=== PATIENT | male | born 1950 | race Caucasian/White ===

== ENCOUNTER 2021-11-17 12:44 | Outpatient (CLI) | payer MEDICARE, OTHER, SELFPAY | END 2021-11-17 12:45 | disposition home or self-care (01) | LOC: RAD 12:47 | PROVIDERS: PCP Internal Medicine; Visit Provider Internal Medicine | DX: I77.810 Thoracic aortic ectasia (principal); I51.7 Cardiomegaly | CPT/HCPCS: 93306 ==

== ENCOUNTER 2021-12-30 07:52 | Outpatient (CLI) | payer MEDICARE, OTHER, SELFPAY ==
--- NOTE | 2021-12-30 08:00 | CRLHL7_ITS ---
For Patients: As a result of the Century Cures Act, medical imaging exams and procedure reports are released immediately into your electronic medical record. You may view this report before your referring provider. If you have questions, please contact your health care provider. [facility] ??? MOBILE IMAGING SERVICES MYOCARDIAL PERFUSION SCAN, 12/30/2021 CLINICAL HISTORY: 71-year-old male. Dyspnea. Hypertension. Shortness of breath. Hyperlipidemia. 5 feet 11 inches, 225 pounds. TECHNIQUE: (Resting SPECT and stress gated SPECT with wall motion and ejection fraction) Stress: Treadmill (6 minutes 36 seconds) Maximum Heart Rate: 142 bpm Maximum Blood Pressure: 178 mmHg systolic Rate Pressure Product: 25,276 Dose (Stress/Rest): 35.4 mCi/10.5 mCi [id number] (IV) Comparison: None FINDINGS: There is good uptake of activity by the left ventricle. No left ventricular enlargement is noted. There is soft tissue attenuation. No other significant fixed or reversible defects are identified. The gated images demonstrate a normal left ventricular ejection fraction of 68 percent. No regional wall motion abnormalities are identified. IMPRESSION: 1) There is no evidence of significant myocardial ischemia or infarction. 2) Normal left ventricular ejection fraction of 68 percent. This study was jointly reviewed by Radiology and Cardiology. MAULIK SERRANO M.D. Diagnostic/Nuclear Medicine Radiologist [email or web address] Transcribed: 4:10 p.m. AGNES GAMING M.D. Department of Cardiology RD/Dictated by: Maulik Serrano MD @ 12/30/2021 1:51:00 PM (Electronically Signed)
[2021-12-30 09:50] VITALS: BP 130/80; PULSE 86; RESP 16
--- NOTE | 2021-12-30 10:21 | PM.ST ---
Stress Test Note Date Date of test: 12/30/21 Providers Referring provider: Birgit Roland Primary care provider: Birgit Roland Stress test physician: Faisal Monroe Stress Test Note Stress test ordered: Stress Myoview Indication for test: Shortness of breath Results discussion: Patient is a rosana 71-year-old gentleman presents for the above test, after the risks benefits and side effects are discussed in detail with him he would like to proceed. Cardiac stress test medical history form is reviewed. Pretest EKG shows normal sinus rhythm, with a ventricular rate of 67, blood pressure 148/82. Some mild ST wave irregularities are noted at baseline. Standard Chandan protocol is employed over a time course of 6 minutes 37 seconds, achieved 7.9 Mets, with a maximum heart rate of 142 which is 110% of the maximum. Test is terminated because of fulfillment of protocol, there was no chest pain no shortness of breath or any other subjective symptoms. He did not have any ST wave changes suggestive of ischemia, there is no dysrhythmias, any recovered normally in the recovery. Impression: Negative electrographic portion of stress Myoview Follow up suggested: Await nuclear images these will be jointly read by Cardiology and nuclear Medicine, clinical correlation with these will be needed, patient was back to baseline left this testing facility in excellent condition.
== END 2021-12-30 07:53 | disposition home or self-care (01) ==
LOC: STRESS 07:53
PROVIDERS: PCP Internal Medicine; Visit Provider Family Medicine
DX: R06.00 Dyspnea, unspecified (principal); R06.02 Shortness of breath; I10 Essential (primary) hypertension; E78.5 Hyperlipidemia, unspecified
CPT/HCPCS: 78452; 93016; 93017; A9500

== ENCOUNTER 2022-10-10 13:52 | Outpatient (CLI) | payer MEDICARE, OTHER, SELFPAY | END 2022-10-10 13:53 | disposition home or self-care (01) | LOC: RAD 13:52 | PROVIDERS: PCP Internal Medicine; Visit Provider Internal Medicine | DX: I77.810 Thoracic aortic ectasia (principal); I35.1 Nonrheumatic aortic (valve) insufficiency | CPT/HCPCS: 93306 ==

== ENCOUNTER 2022-12-26 08:39 | Outpatient (CLI) | payer MEDICARE, OTHER, SELFPAY ==
--- NOTE | 2022-12-26 09:40 | W.ANESCHARGE ---
Anesthesia Charges Start Date/Time Anesthesia Start Date: 12/26/22 Anesthesia Start Time: 09:05 Stop Date/Time Anesthesia Stop Date: 12/26/22 Anesthesia Stop Time: 09:38 Summary Extremes of Age - Over 70 or under 1: INFORMATION TECHNOLOGY ARCHITECT
--- NOTE | 2022-12-26 09:43 | W.ANESCHARGE ---
Anesthesia Charges Start Date/Time Anesthesia Start Date: 12/26/22 Anesthesia Start Time: 09:05 Stop Date/Time Anesthesia Stop Date: 12/26/22 Anesthesia Stop Time: 09:38 Summary Extremes of Age - Over 70 or under 1: MDA
== END 2022-12-26 08:40 | disposition home or self-care (01) ==
LOC: OP CLINIC 08:40
PROVIDERS: PCP Internal Medicine; Visit Provider Surgery
DX: Z12.11 Encounter for screening for malignant neoplasm of colon (principal); K64.8 Other hemorrhoids; K57.30 Diverticulosis of large intestine without perforation or abscess without bleeding; K63.5 Polyp of colon; Z86.010 Personal history of colon polyps
CPT/HCPCS: 00811; 45385; 88305; 99100; J2704

== ENCOUNTER 2023-10-23 10:25 | Outpatient (CLI) | payer MEDICARE, OTHER, SELFPAY ==
--- OUTSIDE RECORDS SUMMARY | 2023-10-23 10:28 | XMS_ITS | Encounter Summary ---
Author Organization [facility] Address [address] [place] [address] Care Team Providers Care Microgrinder Operator Name Role Phone Raymundo Denis MD Primary Care Provider [phone] Reason for Visit * Procedure/Equipment (Routine) - Incomplete Specialty Diagnoses / Procedures Referred By Contac t Referred To Contact Diagnoses Lumbar pain Chronic bilateral thoracic back pain (HRC) Procedures MR Lumbar Spine WO IV Cont Vanessa Mehta DOCTOR OF PODIATRY, CMV DRIVER [address] [place] [address] Referral ID Status Reason Start Date Expiration Date V isits Requested Visits Authorized [id number] Incomplete 08/22/2023 11/20/2024 1 1 Encounter Details Date Type Department Care Team (Latest Contact Info) Description 08/25/2023 10:30 AM CDT Ancillary Procedure [facility] [place] [id number] [place] [address] [place] [phone] Vanessa Mehta DOCTOR OF PODIATRY, CMV DRIVER [address] [place] [id number] Lumbar pain; Chronic bilateral thoracic back pain (HRC) Social History Tobacco Use Types Packs/Day Years Used Date Smoking Tobacco: Never Alcohol Use Standard Drinks/Week Comments Yes 0 (1 standard drink = 0.6 oz pur e alcohol) socially Sex and Gender Information Value Date Recorded Sex Assigned at Not on file Gender Identity Not on file Sexual Orientation Not on file documented as of this encounter Plan of Treatment Upcoming Encounters Date Type Department Care Team (Late st Contact Info) Description 12/22/2023 1:10 PM CDT Appointment [facility] [place] [address] Ear, Nose, and Throat [address] [place] [phone] Aretha Amin MD [address] [place] [address] documented as of this encounter Procedures Procedure Name Priority Date/Time Associated Diagnosis Comments MR LUMBAR SPINE WO IV CONT Routine 08/25/2023 11:03 AM CDT Lumbar pain Chronic bilateral thoracic back pain (HRC) documented in this encounter Results * MR Lumbar Spine WO IV Cont (08/25/2023 11:03 AM CDT) Anatomical Region Laterality Modality Spine, L-Spine, Skeletal, MSK Ma gnetic Resonance 08/25/2023 10:3 4 AM CDT Impressions 08/25/2023 11:59 PM CDT INDICATION: Lumbar pain TECHNIQUE: ??Routine non-contrast MRI of the lumbar spine. COMPARISON: None. FINDINGS: Sagittal: 5 lumbar type vertebral bodies. First trapezoidal segment labeled S1. Tortuosity of the nerve roots of the cauda equina at the L4-S1 levels. Disc space narrowing mild degenerative endplate signal changes T11-S1 levels. Lower thoracic spinal cord unremarkable. Mild grade 1 retrolisthesis L2-3 and L5-S1 levels. Axial: T11-T12 level: Mild posterior disc bulge. T12-L1 level: Mild posterior disc bulge. L1-2 level: Mild posterior disc bulge small bilateral facet joint effusions. L2-3 level: Mild to moderate posterior disc osteophyte complex, mild bilateral facet hypertrophic change, dorsal epidural lipomatosis, moderate central stenosis AP thecal sac 7 mm. Mild to moderate left-sided neural foraminal stenosis. L3-4 level: Moderate posterior disc bulge, dorsal epidural lipomatosis contributes to moderate to severe central stenosis AP thecal sac 6 mm. Moderate right-sided mild left-sided neural foraminal stenosis. L4-5 level: Mild to moderate posterior disc osteophyte complex, severe right- sided mild left-sided neural foraminal stenosis with potential right L4 nerve root effacement, sagittal images 5. Mild bilateral facet hypertrophic change, dorsal epidural lipomatosis, moderate to severe central stenosis AP thecal sac 6 mm. L5-S1 level: Moderate posterior disc bulge, moderate right-sided severe left- sided neural foraminal stenosis with potential left L5 nerve root effacement, sagittal images 12. Mild left-sided facet hypertrophic change. IMPRESSION: 1. Moderate to severe central stenosis at the L3-4 and L4-5 levels. 2. Severe neural foraminal stenosis at the L4-5 level on the right and the L5-S1 level on the left with potential right L4 left L5 nerve root effacement. 3. Additional degenerative changes as above. 4. No evidence for vertebral body compression fracture. Comment: Many lumbar spine MRI findings are so common that while we may have reported their presence, they must be interpreted with caution and in the context of the clinical situation. The frequency of these findings in adults WITHOUT low back pain increases with age and are as follows: disk degeneration (37-96%), disk height loss (24-84%), disk bulge (30-84%), disk protrusion (29-43%), annular fissure (19- 29%), and facet degeneration (4-83%). Frequency percentages adapted from Charity W, Nabil PH, Filiberto B, et al. AJNR AM J Neuroradiol 2015:36:811-16. Narrative Procedure Note Jemal Jackson MD - 08/26/2023 IMPRESSION INDICATION: Lumbar pain TECHNIQUE: Routine non-contrast MRI of the lumbar spine. COMPARISON: None. FINDINGS: Sagittal: 5 lumbar type vertebral bodies. First trapezoidal segment labeled S1.Tortuosity of the nerve roots of the cauda equina at the L4-S1 levels.Disc space narrowing mild degenerative endplate signal changes [id number]. Lower thoracic spinal cord unremarkable. Mild grade 1retrolisthesis L2-3 and L5-S1 levels. Axial: T11-T12 level: Mild posterior disc bulge. T12-L1 level: Mild posterior disc bulge. L1-2 level: Mild posterior disc bulge small bilateral facet jointeffusions. L2-3 level: Mild to moderate posterior disc osteophyte complex, mildbilateral facet hypertrophic change, dorsal epidural lipomatosis, moderatecentral stenosis AP thecal sac 7 mm. Mild to moderate left-sided neuralforaminal stenosis. L3-4 level: Moderate posterior disc bulge, dorsal epidural lipomatosiscontributes to moderate to severe central stenosis AP thecal sac 6 mm.Moderate right-sided mild left-sided neural foraminal stenosis. L4-5 level: Mild to moderate posterior disc osteophyte complex, severeright- sided mild left-sided neural foraminal stenosis with potential rightL4 nerve root effacement, sagittal images 5. Mild bilateral facethypertrophic change, dorsal epidural lipomatosis, moderate to severecentral stenosis AP thecal sac 6 mm. L5-S1 level: Moderate posterior disc bulge, moderate right-sided severeleft- sided neural foraminal stenosis with potential left L5 nerve rooteffacement, sagittal images 12. Mild left-sided facet hypertrophicchange. IMPRESSION: 1. Moderate to severe central stenosis at the L3-4 and L4-5 levels. 2. Severe neural foraminal stenosis at the L4-5 level on the right and theL5-S1 level on the left with potential right L4 left L5 nerve rooteffacement. 3. Additional degenerative changes as above. 4. No evidence for vertebral body compression fracture. Comment: Many lumbar spine MRI findings are so common that while we mayhave reported their presence, they must be interpreted with caution and inthe context of the clinical situation. The frequency of these findings inadults WITHOUT low back pain increases with age and are as follows: diskdegeneration (37-96%), disk height loss (24-84%), disk bulge (30-84%),disk protrusion (29-43%), annular fissure (19- 29%), and facet degeneration(4-83%). Frequency percentages adapted from Charity W, Lumacymer PH, Filiberto B, jamaall. AJNR AM J Neuroradiol 2015:36:811-16. Vanessa Mehta APRN, CMV DRIVER RAD MRI documented in this encounter Visit Diagnoses Diagnosis Lumbar pain Lumbago Chronic bilateral thoracic back pain (HRC) documented in this encounter Care Teams Microgrinder Operator Relationship Specialty [place] [address] [place] [address] PCP - General 10/17/12 documented as of this encounter
--- OUTSIDE RECORDS SUMMARY | 2023-10-23 10:28 | XMS_ITS | Encounter Summary ---
Author Organization [facility] Address [address] [place] [address] Care Team Providers Care Grader Green Meat Name Role Phone Raymundo Denis MD Primary Care Provider [phone] Reason for Visit * Reason Comments QUESTIONS, GENERAL Entered automaticall y based on patient selection in [employer]. Encounter Details Date Type Department Care Team (Late st Contact Info) Description 10/09/2023 8:45 AM CDT E-Visit [facility] [address] [place] [address] Vanessa Mehta, BELL STAFF, UNDERGROUND HEAVY EQUIPMENT OPERATOR [address] [place], [place] [id number] Chief Comp: QUESTIONS, GENERAL Social History Tobacco Use Types Packs/Day Years Used Date Smoking Tobacco: Never Alcohol Use Standard Drinks/Week Comments Yes 0 (1 standard drink = 0.6 oz pur e alcohol) socially Sex and Gender Information Value Date Recorded Sex Assigned at Not on file Gender Identity Not on file Sexual Orientation Not on file documented as of this encounter Nursing Notes * Birgit Brito - 10/10/2023 4:07 PM CDT Pt contacted and given medical records phone number [phone]) to assist with transferring records. documented in this encounter Plan of Treatment Upcoming Encounters Date Type Department Care Team (Late st Contact Info) Description 12/22/2023 1:10 PM CDT Appointment [facility] [place] [address] Ear, Nose, and Throat [address] [place] [address] Aretha Amin MD [address] [place], [place] [id number] documented as of this encounter Visit Diagnoses Not on filedocumented in this encounter Care Teams Grader Green Meat Relationship Specialty Start [place] [address] [place] [address] PCP - General 10/17/12 documented as of this encounter
--- OUTSIDE RECORDS SUMMARY | 2023-10-23 10:28 | XMS_ITS | Encounter Summary ---
Author Organization [email or web address] Address [address] [place] [address] Care Team Providers Care Sash Repairer Name Role Phone Raymundo Denis MD Primary Care Provider [phone] Reason for Visit * Reason Comments Injection Encounter Details Date Type Department Care Team (Late st Contact Info) Description 09/05/2023 Telephone [id number] PM&R Injections [address] [facility] [place], [place] [id number] Amaris Gonzalez R, DO [address] [place] [address] Injection Social History Tobacco Use Types Packs/Day Years Used Date Smoking Tobacco: Never Alcohol Use Standard Drinks/Week Comments Yes 0 (1 standard drink = 0.6 oz pur e alcohol) socially Sex and Gender Information Value Date Recorded Sex Assigned at Not on file Gender Identity Not on file Sexual Orientation Not on file documented as of this encounter Nursing Notes * Ginger Bolivar RN - 09/07/2023 9:51 AM CDT Updated patient to hold ibuprofen for 24 hours prior to appointment. No further questions or concerns. * Denisse Noyola - 09/05/2023 9:07 AM CDT Patient is scheduled for an injection and is currently taking Ibu Ok to lvm Please call patient to discuss whether they need to discontinue prioir to injection appt. documented in this encounter Plan of Treatment Upcoming Encounters Date Type Department Care Team (Late st Contact Info) Description 12/22/2023 1:10 PM CDT Appointment [facility] [place] [address] Ear, Nose, and Throat [address] [place] [address] Aretha Amin MD [address] [place], [place] [id number] documented as of this encounter Visit Diagnoses Not on filedocumented in this encounter Care Teams Sash Repairer Relationship Specialty [place] [address] [place] [address] PCP - General 10/17/12 documented as of this encounter
--- OUTSIDE RECORDS SUMMARY | 2023-10-23 10:28 | XMS_ITS | Encounter Summary ---
Author Organization [facility] Address [address] [place] [address] Care Team Providers Care Medical Imaging Technologist Name Role Phone Raymundo Denis MD Primary Care Provider [phone] Reason for Referral * (Routine) - New Request Specialty Diagnoses / Procedures Referred By Contac t Referred To Contact Diagnoses Lumbar radiculopathy Spinal stenosis of lumbar region with neurogenic claudication Procedures XR CLIN ISOVUE/OMNIPAQUE 200-299 [place] 20[place] [address] [place] [address] Referral ID Status Reason Start Date Expiration Date V isits Requested Visits Authorized [id number] New Request 09/22/2023 12/21/2024 1 1 * (Routine) - New Request Specialty Diagnoses / Procedures Referred By Contac t Referred To Contact Diagnoses Lumbar radiculopathy Spinal stenosis of lumbar region with neurogenic claudication Procedures XR CLIN ISOVUE/OMNIPAQUE 200-299 [place]ML 20[place] [address] [place] [address] Referral ID Status Reason Start Date Expiration Date V isits Requested Visits Authorized [id number] New Request 09/22/2023 12/21/2024 1 1 * (Routine) - New Request Specialty Diagnoses / Procedures Referred By Contac t Referred To Contact Diagnoses Lumbar radiculopathy Spinal stenosis of lumbar region with neurogenic claudication Procedures Triamcinolone [place] [address] [place] [address] Referral ID Status Reason Start Date Expiration Date V isits Requested Visits Authorized [id number] New Request 09/22/2023 12/21/2024 1 1 Reason for Visit * Reason Comments BACK PAIN, LOW * Procedure/Equipment (Routine) - Closed Specialty Diagnoses / Procedures Referred By Contac t Referred To Contact Diagnoses Lumbar radiculopathy Lumbar pain Spinal stenosis of lumbar region with neurogenic claudication Procedures FL Spinal Injection For Pain Management Vanessa Mehta APRN, NATURAL RESOURCE TECHNICIAN [address] [place] [address] Referral ID Status Reason Start Date Expiration Date Visits Re quested Visits Authorized [id number] Closed 08/30/2023 11/28/2024 1 1 Encounter Details Date Type Department Care Team (Late st Contact Info) Description 09/22/2023 9:30 AM CDT Treatment [facility] INJECTIONS [address] [place] [address] Vanessa eMhta APRN, NATURAL RESOURCE TECHNICIAN [address] [place] [address] [place] [address] [place] [id number] Lumbar radiculopathy; Lumbar pain; Spinal stenosis of lumbar region with neurogenic claudication Social History Tobacco Use Types Packs/Day Years Used Date Smoking Tobacco: Never Alcohol Use Standard Drinks/Week Comments Yes 0 (1 standard drink = 0.6 oz pur e alcohol) socially Sex and Gender Information Value Date Recorded Sex Assigned at Not on file Gender Identity Not on file Sexual Orientation Not on file documented as of this encounter Last Filed Vital Signs Vital Sign Reading Time Taken Comments Blood Pressure 156/97 09/22/2023 9:00 AM CDT did not take BP meds today Pulse 72 09/22/2023 9:00 AM CDT Temperature - - Respiratory Rate 16 09/22/2023 9:00 AM CDT Oxygen Saturation - - Inhaled Oxygen Concentration - - Weight - - Height - - Body Mass Index - - documented in this encounter Progress Notes * Funmilayo Crenshaw RN - 09/22/2023 9:30 AM CDT Aromatherapist present in [employer]. Patient denies any s/s of infection and has not taken any antibiotics in the last 48 hours. * Anand Rebolledo MD - 09/22/2023 9:30 AM CDT Patient name: Lamin Arredondo Procedure Date: 09/22/2023 Referred by: Vanessa Mehta, AIR BRAKE TESTER, NATURAL RESOURCE TECHNICIAN [address] [place] [address] Pre Operative Diagnosis: Lumbar Radiculopathy/Radicular Pain; Lumbar Spinal Stenosis without myelopathy; Lumbar spondylosis Post Operative Diagnosis: Lumbar Radiculopathy/Radicular Pain; Lumbar Spinal Stenosis without myelopathy; Lumbar spondylosis Name of Procedure: L4-L5 interlaminar epidural steroid injection Performed by: Anand Rebolledo MD Description of Procedure: The patient denies fevers, chills, night sweats, or weight loss. The patient does not take prescription blood thinners or antibiotics for an active infection. We reviewed the risks, alternatives, benefits, and potential complications of an epidural steroid injection which include but are not limited to bleeding, bruising, infection, allergic reaction, increased pain, headache, lack of pain relief, or nerve, spinal cord, and blood vessel injury. Finally, the patient stated that he has a oil transport driver. After discussion with the patient, he has decided to proceed with the procedure. After verbal and written informed consent, the patient was taken to the procedure suite and placed in a prone position. A preprocedural pause was performed identifying appropriate patient, site, side, and nature of procedure. Fluoroscopy was used to identify the L4-L5 interlaminar space. The overlying skin was marked and prepped with ChloraPrep solution times two and draped in a sterile fashion. Aseptic technique was used throughout the procedure. The skin was anesthetized with 1% lidocaine andusing AP fluoroscopic guidance at the L4- L5 interspace, a 20-gauge Tuohy needle was advanced contacting the ligamentum flavum which was engaged. Loss of resistance to saline was crisp with a loss of resistance syringe at around 8 cm. A lateral view was obtained as well. After negative aspiration ofblood and CSF, a total of 1 mL of iodinated contrast was injected in both AP and lateral view. Thisrevealed a nonvascular epidurogram. Then 40 mg of triamcinolone combined with 3 mL of preservative-free normal saline were injected slowly without difficulty or complication. The needle was removed intact with continuous flush of 1% lidocaine. A bandage was applied and the patient was taken to the recovery room where he was observed for 10-20 minutes and discharged in good condition. Overall, no complications were noted. 3 mL of Isovue M200 was drawn. 1 mL was used and 2 mL was discarded. 40 mg of triamcinolone was drawn. 40 mg was used and 0 mg was discarded Pre-injection pain level: 4/10 Post-injection pain level: 0/10 Anand Rebolledo MD Physical Medicine and Rehabilitation Interventional Pain Management * Funmilayo Crenshaw RN - 09/22/2023 9:30 AM CDT Patient was monitored for 10 minutes post injection. Patient had no signs or symptoms of adverse reaction to injection. Patient was given oral and written discharge instructions and verbalized understanding. [facility] oil transport driver. documented in this encounter Plan of Treatment Upcoming Encounters Date Type Department Care Team (Late st Contact Info) Description 12/22/2023 1:10 PM CDT Appointment [facility] [place] [address] Ear, Nose, and Throat [address] [place] [address] Aretha Amin MD [address] [place] [address] documented as of this encounter Procedures Procedure Name Priority Date/Time Associated Diagnosis Comments FL SPINAL INJECTION FOR PAIN MANAGEMENT Routine 09/22/2023 9:18 AM CDT Lumbar radiculopathy Lumbar pain Spinal stenosis of lumbar region with neurogenic claudication documented in this encounter Results * FL Spinal Injection For Pain Management (09/22/2023 9:18 AM CDT) Anatomical Region Laterality Modality Spine, L-Spine, T-Spine, C-Spine Radiographic Imaging Narrative 09/22/2023 9:20 AM CDT These images were obtained during a surgical procedure. Vanessa Mehta APRN, NATURAL RESOURCE TECHNICIAN RAD FL documented in this encounter Visit Diagnoses Diagnosis Lumbar radiculopathy Thoracic or lumbosacral neuritis or radiculitis, unspecified Lumbar pain Lumbago Spinal stenosis of lumbar region with neurogenic claudication Spinal stenosis, lumbar region, with neurogenic claudication documented in this encounter Care Teams Medical Imaging Technologist Relationship Specialty Start [place] [address] [place] [place], [place] [id number] PCP - General 10/17/12 documented as of this encounter
--- OUTSIDE RECORDS SUMMARY | 2023-10-23 10:28 | XMS_ITS | Clinical Summary ---
Author Organization [facility] Address [address] [place] [address] Care Team Providers Care Rolling Mill Plugger Name Role Phone Raymundo Denis MD Primary Care Provider [phone] Source Comments You are receiving this document as you are listed as the primary care provider,follow-up provider, or the patient has been referred to you for consultation.This is in compliance with the Medicare and[facility] EHR Incentive Program,which states Providers who transition their patient to another setting of careor provider of care or refers their patient to another provider of care shouldprovide summary care record for each transition of care or referral. LOC&ALL Allergies Active Allergy Reactions Criticality Noted Date Comments Review Contrast Media 12/25/2008 PN: LW CM1: >>> NO CONTRAST ADVERSE REACTION <<< Reaction : Medications Medication Sig Dispensed Refills Start Date End Date Status lisinopril (AKA ZESTRIL) 10 MG tablet Take 1 Tablet (10 mg) by mouth daily. 90 3 12/08/2008 Active hydrochlorothiazide (ORETIC) 25 MG tablet Take 1 Tablet (25 mg) by mouth daily. 04/05/2013 Active Active Problems Problem Noted Date Diagnosed Date High blood pressure 08/22/2023 Back pain 04/17/2023 Encounters Date Type Department Care Team Description 10/09/2023 8:45 AM CDT E-Visit [facility] [address] [place] [address] Vanessa Mehta, STRUCTURAL BIOLOGIST, HEAD PAPER TESTER Chief Comp: QUESTIONS, GENERAL 09/22/2023 9:30 AM CDT Treatment [facility] [address] [place] [address] Vanessa Mehta APRN, Anand Lopez MD Lumbar radiculopathy; Lumbar pain; Spinal stenosis of lumbar region with neurogenic claudication 09/05/2023 Telephone [id number] PM&R Injections [address] [place] [facility] [place] [place] [address] Amaris Gonzalez, DO Injection 08/30/2023 8:50 AM CDT Office Visit [facility] [address] [place] [phone] Vanessa Mehta APRN, CHUYITA Lumbar radiculopathy (Primary Dx); Lumbar pain; Spinal stenosis of lumbar region with neurogenic claudication; Lumbar foraminal stenosis 08/25/2023 10:30 AM CDT Ancillary Procedure [facility] [address] [place] [address] [place] [address] Vanessa Mehat APRN, HEAD PAPER TESTER Lumbar pain; Chronic bilateral thoracic back pain (HRC) 08/22/2023 11:00 AM CDT Ancillary Procedure [facility] [address] Radiology [address] [place] [address] Vanessa Mehta APRN, HEAD PAPER TESTER Lumbar pain 08/22/2023 10:40 AM CDT Office Visit [facility] [place] [address] [place] [phone] Vanessa Mehta APRN, HEAD PAPER TESTER Lumbar pain (Primary Dx); DDD (degenerative disc disease), lumbar (HRC); Lumbar facet arthropathy (HRC); Spondylolisthesis of lumbar region 08/08/2023 E-Visit [facility] [address] [place] [address] Mychart, Generic Provider from Last 3 Months Immunizations Name Administration Dates Next Due Td 03/09/1998,12/13/1989,04/16/1989 Varicella 07/22/1997(Deferred: Immune by Pepe velasquez) Social History Tobacco Use Types Packs/Day Years Used Date Smoking Tobacco: Never Alcohol Use Standard Drinks/Week Comments Yes 0 (1 standard drink = 0.6 oz pur e alcohol) socially Sex and Gender Information Value Date Recorded Sex Assigned at Not on file Gender Identity Not on file Sexual Orientation Not on file Last Filed Vital Signs Vital Sign Reading Time Taken Comments Blood Pressure 156/97 09/22/2023 9:00 AM CDT did not take BP meds today Pulse 72 09/22/2023 9:00 AM CDT Temperature 36.5 ??C (97.7 ??F) 12/12/2013 2 :14 PM CDT Respiratory Rate 16 09/22/2023 9:00 AM CDT Oxygen Saturation - - Inhaled Oxygen Concentration - - Weight 97.5 kg (215 lb) 04/06/2022 10:0 3 AM CASK MAKER Height 182.9 cm (6') 04/06/2022 10:03 AM CASK MAKER Body Mass Index 29.16 04/06/2022 10:03 AM CASK MAKER Plan of Treatment Upcoming Encounters Date Type Department Care Team (Late st Contact Info) Description 12/22/2023 1:10 PM CDT Appointment [place] [facility] [place] [address] Ear, Nose, and Throat [address] [place] [address] Aretha Amin MD [address] [place] [address] Health Maintenance Due Date Last Done Comments Colon Cancer Screening Plan Due 1950 Hep C Screening (Preventive Services) 1950 Medicare Annual Wellness Visit 1950 Cholesterol 03/09/2003 03/09/1998 COVID-19 Vaccine ( season) 2023 02/27/2023, 12/29/2021, 09/03/2021, Additional history exists Influenza (#1) 2023 01/02/2023, 12/16, 12/31/2020, Additional history exists DTaP/Tdap/Td (2 - Tdap) 02/07/2026 02/08/20 16, 03/09/1998, 12/13/1989, Additional history exists IPV (Polio) Aged Out 01/28/2010 No longer eligi ble based on patient's age to complete this topic HepA Aged Out 05/04/2012, 01/28/2010 No lo nger eligible based on patient's age to complete this topic Pneumococcal 65+ Yrs Completed 08/28/2018, 05/22/19 18 Zoster/Shingles Completed 03/28/2019, 01/17/2019 HepB Aged Out No longer eligi ble based on patient's age to complete this topic Hib Aged Out No longer eligi ble based on patient's age to complete this topic MCV4 Aged Out No longer eligi ble based on patient's age to complete this topic Procedures Procedure Name Priority Date/Time Associated Diagnosis Comments FL SPINAL INJECTION FOR PAIN MANAGEMENT Routine 09/22/2023 9:18 AM CDT Lumbar radiculopathy Lumbar pain Spinal stenosis of lumbar region with neurogenic claudication MR LUMBAR SPINE WO IV CONT Routine 08/25/2023 11:03 AM CDT Lumbar pain Chronic bilateral thoracic back pain (HRC) XR LUMBAR SPINE W FLEXION EXTENSION Routine 08/22/2023 11:10 AM CDT Lumbar pain CHOLESTEROL, TOTAL AND HDL Routine 03/09/1998 4:11 PM CASK MAKER from Last 3 Months or Most Recently Relevant to Health Maintenance Results * FL Spinal Injection For Pain Management (09/22/2023 9:18 AM CDT) Anatomical Region Laterality Modality Spine, L-Spine, T-Spine, C-Spine Radiographic Imaging Narrative 09/22/2023 9:20 AM CDT These images were obtained during a surgical procedure. Vanessa Mehta APRN, HEAD PAPER TESTER RAD FL * MR Lumbar Spine WO IV Cont [...] space narrowing mild degenerative endplate signal changes [id number]. Lower thoracic spinal cord unremarkable. Mild grade [...] degeneration(4-83%). Frequency percentages adapted from Charity W, Nabil PH, Filiberto Nicolas, jamaall. AJNR AM J Neuroradiol 2015:36:811-16. Vanessa Mehta APRN, CNP RAD MRI * XR Lumbar Spine W Flexion Extension (08/22/2023 11:10 AM CDT) Anatomical Region Laterality Modality Spine, L-Spine Digital Radiogra phy 08/22/2023 10:5 8 AM CDT Impressions 08/22/2023 12:40 PM CDT COMPARISON: ??None. FINDINGS: ??Mild lumbar curve convex to the right. There is 3 mm of degenerative retrolisthesis of L1 on L2 and L2 on L3 in the neutral position which reduces slightly in flexion and is unchanged with extension. There is moderate to advanced multilevel disc space narrowing and degenerative facet arthritis in the lumbar spine. Narrative Procedure Note Tony Francois MD - 08/22/2023 IMPRESSION COMPARISON: None. FINDINGS: Mild lumbar curve convex to the right. There is 3 mm ofdegenerative retrolisthesis of L1 on L2 and L2 on L3 in the neutralposition which reduces slightly in flexion and is unchanged withextension. There is moderate to advanced multilevel disc space narrowingand degenerative facet arthritis in the lumbar spine. Vanessa Mehta APRN, HEAD PAPER TESTER RAD GD * (ABNORMAL) CHOLESTEROL, TOTAL AND HDL (03/09/1998 4:11 PM CASK MAKER) Cholesterol 205(H) <200 mg/dl [facility] Cholesterol Result should not be interpreted without the patient's history of cardiovascular risk factors. [facility] HDL 59 >35 mg/dl [facility] 03/09/1998 4:11 PM CASK MAKER 03/09/1998 4:12 PM CASK MAKER Walter Pagan MD LAB_[facility] [address] [address] from Last 3 Months or Most Recently Relevant to Health Maintenance Care Teams Rolling Mill Plugger Relationship Specialty [place] [address] [place], [place] [phone] PCP - General 10/17/12
--- OUTSIDE RECORDS SUMMARY | 2023-10-23 10:28 | XMS_ITS | Encounter Summary ---
Author Organization [facility] Address [address] [place] [address] Care Team Providers Care Landscape Gardener Name Role Phone Raymundo Denis MD Primary Care Provider [phone] Reason for Referral * Therapies (Routine) - New Request Specialty Diagnoses / Procedures Referred By Valerie t Referred To Contact Diagnoses Lumbar radiculopathy Lumbar pain Spinal stenosis of lumbar region with neurogenic claudication Vanessa Mehta, MEDICAL SCIENTIST, SCIENCE TEACHER [address] [place] [address] [facility] [address] [address] Referral ID Status Reason Start Date Expiration Date V isits Requested Visits Authorized [id number] New Request 08/30/2023 08/29/2024 1 1 Scheduling Instructions This order is your clinician's recommendation for a service and is not an insurance referral which authorizes payment. The recommended service and/or location may not be covered by your insurance plan. Please call the number on your insurance card to find out your specific benefits and coverage for the recommended services and/or location. If you need help scheduling the recommended services, please ask your clinician's staff to assist you. Question Answer Appointment Urgency? Non-Urgent Requested Services Evaluate and treat May use saline for irrigation or cleansing Yes dexamethasone use Yes May check glucose per protocol (see policy link below) or if patient has symptoms? Yes Comments [facility] * Procedure/Equipment (Routine) - Closed Specialty Diagnoses / Procedures Referred By Valerie webster Referred To Contact Diagnoses Lumbar radiculopathy Lumbar pain Spinal stenosis of lumbar region with neurogenic claudication Procedures FL Spinal Injection For Pain Management Vanessa Mehta APRN, SCIENCE TEACHER [address] [place] [address] Referral ID Status Reason Start Date Expiration Date Visits Re quested Visits Authorized [id number] Closed 08/30/2023 11/28/2024 1 1 Reason for Visit * Reason Comments Follow-up MRI results Encounter Details Date Type Department Care Team (Late st Contact Info) Description 08/30/2023 8:50 AM CDT Office Visit [facility] Orthopa[facility]ics & Sports Medicine [address] [place] [address] Vanessa Mehta APRN, SCIENCE TEACHER [address] [place] [address] Lumbar radiculopathy (Primary Dx); Lumbar pain; Spinal stenosis of lumbar region with neurogenic claudication; Lumbar foraminal stenosis Social History Tobacco Use Types Packs/Day Years Used Date Smoking Tobacco: Never Alcohol Use Standard Drinks/Week Comments Yes 0 (1 standard drink = 0.6 oz pur e alcohol) socially Sex and Gender Information Value Date Recorded Sex Assigned at Not on file Gender Identity Not on file Sexual Orientation Not on file documented as of this encounter Patient Instructions * Patient Instructions* Rita Helton - 08/30/2023 8:50 AM CDT 1) For pain relief: -Trial of heat and/or ice -Over the counter pain medications -Stretches and core exercising as tolerated 2) Physical therapy has been ordered for you. Please schedule as soon as you can. Below are the following locations and the phone numbers to call to schedule an appointment. [facility] -[phone] appointment line 3) An L4-5 interlaminar lumbar epidural steroid injection has been ordered for your low back pain. The injection is used both for pain relief and diagnostic purposes. The injection may take up to 10-14 days to feel the full effect. - If you are diabetic the steroid used in the injection may increase your blood sugars. Please monitor your blood sugars closely post injection. Please follow up in clinic or via phone visit 2-3 weeks following the injection. Appointment Scheduling: The clinic will contact you to schedule your injection. Vanessa Mehta CNP Orthopedic [facility] documented in this encounter Progress Notes * Vanessa Mehta APRN, CNP - 08/30/2023 8:50 AM CDT Images from the original note were not included. LUMBAR Follow Up [facility] HPI: Lamin Arredondo is a 72 y.o. male who presents today for follow up evaluation of lumbar pain with review of lumbar MRI results. He was seen in clinic on 08/22/2023 and MRI was ordered. He denies any changes to his pain describing mainly lower back pain. He denies lumbar radicular symptoms. He rates his pain 4/10. His pain bothers him at night when trying to go to bed and with standing for prolonged periods of time. He notes he walks regularly, up to 3 miles daily, however, lately becauseof pain he cannot do more than 1 mile. He takes Tylenol and ibuprofen sometimes. He denies bowel/bladder incontinence. He denies falls, foot drop/drag. He likes to golf and has had some issues with pain. He has not had lumbar injections or PT. Exam: Constitutional: Alert, well nourished, NAD. HEENT: Normocephalic, atraumatic. Pulm: Without shortness of breath Neurological: Awake Alert Answers questions appropriately Motor exam: Stable strength to BLE. Able to spontaneously move L/E bilaterally Gait stable and independent Imaging: MR Lumbar Spine WO IV Cont Order: [id number] Status: Final result Visible to patient: Yes (seen) Next appt: None Dx: Lumbar pain; Chronic bilateral thorac... Details Reading Physician Reading Date Result Priority Jemal Jackson MD [phone] 08/25/2023 Routine Narrative & Impression IMPRESSION INDICATION: Lumbar pain TECHNIQUE: Routine non-contrast MRI of the lumbar spine. COMPARISON: None. FINDINGS: Sagittal: 5 lumbar type vertebral bodies. First trapezoidal segment labeled S1. Tortuosity of the nerve rootsof the cauda equina at the L4-S1 levels. [...] bulge, moderate right-sided severe left- sided neural foraminalstenosis with potential left L5 nerve root effacement, [...] the context of the clinical situation. The frequencyof these findings in adults WITHOUT low back pain increases with age and are as follows: disk degeneration (37-96%), disk height loss (24-84%), disk bulge (30-84%), disk protrusion (29- 43%), annular fissure (19-29%), and facet degeneration (4-83%). Frequency percentages adapted from Charity W, Nabil PH, Filiberto B, et al. AJNR AM J Neuroradiol 2015:36:811-16. Specimen Collected: 08/25/23 10:34 Last Resulted: 08/25/23 23:59 XR Lumbar Spine W Flexion Extension Order: [id number] Status: Final result Visible to patient: Yes (seen) Next appt: None Dx: Lumbar pain Details Reading Physician Reading Date Result Priority Tony Francois MD [phone] 08/22/2023 Routine Narrative & Impression IMPRESSION COMPARISON: None. FINDINGS: Mild lumbar curve convex to the right. There is 3 mm of degenerative retrolisthesis of L1on L2 and L2 on L3 in the neutral position which reduces slightly in flexion and is unchanged with extension. There is moderate to advanced multilevel disc space narrowing and degenerative facet arthritis in the lumbar spine. Specimen Collected: 08/22/23 10:58 Last Resulted: 08/22/23 12:40 Assessment: I reviewed findings of moderate to severe L3-4 and L4-5 canal stenosis with foraminal stenosis at L4-5 and L5-S1. He denies lumbar radicular pain stating the pain is mainly across the lower back. He is interested in starting PT and having a lumbar GABINO which was ordered for the L4-5 level. If he hasany increased pain and/or leg pain or weakness he will let me know as well as if the pain does not improve. Plan: 1) For pain relief: -Trial of heat and/or ice -Over the counter pain medications -Stretches and core exercising as tolerated 2) Physical therapy has been ordered for you. Please schedule as soon as you can. Below are the following locations and the phone numbers to call to schedule an appointment [facility] -[phone] appointment line 3) An L4-5 interlaminar lumbar epidural steroid injections has been ordered for your low back pain.The injection is used both for pain relief and diagnostic purposes. The injection may take up to 10-14 days to feel the full effect. - If you are diabetic the steroid used in the injection may increase your blood sugars. Please monitor your blood sugars closely post injection. Please follow up in clinic or via phone visit 2-3 weeks following the injection. Appointment Scheduling: The clinic will contact you to schedule your injection. Vanessa Mehta CNP Orthopedic Spine [facility] documented in this encounter Plan of Treatment Upcoming Encounters Date Type Department Care Team (Late st Contact Info) Description 12/22/2023 1:10 PM CDT Appointment [facility] [place] [address] Ear, Nose, and Throat [address] [place] [phone] Aretha Amin MD [address] [place] [address] Scheduled Referrals Name Type Priority Associated Diagnoses Orde r Schedule Physical Therapy Referral Routine Lumbar radiculopathy Lumbar pain Spinal stenosis of lumbar region with neurogenic claudication Ordered: 08/30/2023 documented as of this encounter Results * FL Spinal Injection For Pain Management (09/22/2023 9:18 AM CDT) Anatomical Region Laterality Modality Spine, L-Spine, T-Spine, C-Spine Radiographic Imaging Narrative 09/22/2023 9:20 AM CDT These images were obtained during a surgical procedure. Vanessa Mehta APRN, CNP RAD [place] documented in this encounter Visit Diagnoses Diagnosis Lumbar radiculopathy- Primary Thoracic or lumbosacral neuritis or radiculitis, unspecified Lumbar pain Lumbago Spinal stenosis of lumbar region with neurogenic claudication Spinal stenosis, lumbar region, with neurogenic claudication Lumbar foraminal stenosis Spinal stenosis, lumbar region, without neurogenic claudication Lumbar radiculopathy Thoracic or lumbosacral neuritis or radiculitis, unspecified Lumbar pain Lumbago Spinal stenosis of lumbar region with neurogenic claudication Spinal stenosis, lumbar region, with neurogenic claudication documented in this encounter Care Teams Landscape Gardener Relationship Specialty [place] [address] [place] [address] PCP - General 10/17/12 documented as of this encounter
--- OUTSIDE RECORDS SUMMARY | 2023-10-23 10:29 | XMS_ITS | Encounter Summary ---
Author Organization [facility] Address [address] [place] [address] Care Team Providers Care Neonatal Pediatric Nurse Name Role Phone Raymundo Denis MD Primary Care Provider [phone] Reason for Visit * Procedure/Equipment (Routine) - Incomplete Specialty Diagnoses / Procedures Referred By Contac t Referred To Contact Diagnoses Lumbar pain Procedures XR Lumbar Spine W Flexion Extension Vanessa eMhta PLATE PAINTER APPRENTICE, ENVIRONMENTAL SERVICE AIDE [address] [place] [address] Referral ID Status Reason Start Date Expiration Date V isits Requested Visits Authorized [id number] Incomplete 08/22/2023 11/20/2024 1 1 Encounter Details Date Type Department Care Team (Late st Contact Info) Description 08/22/2023 11:00 AM CDT Ancillary Procedure [facility] [place] [address] Radiology [address] [place] [phone] Vanessa Mehta PLATE PAINTER APPRENTICE, ENVIRONMENTAL SERVICE AIDE [address] [place] [id number] Lumbar pain Social History Tobacco Use Types Packs/Day Years [...] 12/22/2023 1:10 PM CDT Appointment [facility] [address] Ear, Nose, and Throat [address] [place] [address] Aretha Amin MD [address] [place] [address] documented as of this encounter Procedures Procedure Name Priority Date/Time Associated Diagnosis Comments XR LUMBAR SPINE W FLEXION EXTENSION Routine 08/22/2023 11:10 AM CDT Lumbar pain documented in this encounter Results * XR Lumbar Spine W Flexion Extension [...] in the lumbar spine. Vanessa Mehta APRN, ENVIRONMENTAL SERVICE AIDE RAD [facility] documented in this encounter Visit Diagnoses Diagnosis Lumbar pain Lumbago documented in this encounter Care Teams Neonatal Pediatric Nurse Relationship Specialty [place] [address] [address] [place], [place] [phone] PCP - General 10/17/12 documented as of this encounter
--- OUTSIDE RECORDS SUMMARY | 2023-10-23 10:29 | XMS_ITS | Encounter Summary ---
Author Organization [facility] Address [address] [place] [address] Care Team Providers Care Branch Controller Name Role Phone Raymundo Denis MD Primary Care Provider [phone] Encounter Details Date Type Department Care Team (Latest Contact Info) Description 07/22/1997 Orders Only Walter Pagan MD [address], [place] [address] Social History Tobacco Use Types Packs/Day Years Used Date Smoking Tobacco: Never Assessed Sex and Gender Information Value Date Recorded Sex Assigned at Not on file Gender Identity Not on file Sexual Orientation Not on file documented as of this encounter Plan of Treatment Upcoming Encounters Date Type Department Care Team (Late st Contact Info) Description 12/22/2023 1:10 PM CDT Appointment [facility] [address] Ear, Nose, and Throat [address] [place] [phone] Aretha Amin MD [address] [place], [place] [address] documented as of this encounter Visit Diagnoses Not on filedocumented in this encounter Care Teams Branch Controller Relationship Specialty [place] [address] [place], [place] [phone] PCP - General 10/17/12 documented as of this encounter
--- OUTSIDE RECORDS SUMMARY | 2023-10-23 10:29 | XMS_ITS | Encounter Summary ---
Author Organization [facility] Address [address] [place] [address] Care Team Providers Care Insole Tack Puller Hand Name Role Phone Raymundo Denis MD Primary Care Provider Encounter Details Date Type Department Care Team (Latest Contact Info) Description 06/19/1995 Orders Only Cure, Russell Kincaid MD [address] [place] [address] [place] [address] Social History Tobacco Use Types Packs/Day Years Used Date Smoking Tobacco: Never Assessed Sex and Gender Information Value Date Recorded Sex Assigned at Not on file Gender Identity Not on file Sexual Orientation Not on file documented as of this encounter Plan of Treatment Upcoming Encounters Date Type Department Care Team (Late st Contact Info) Description 12/22/2023 1:10 PM CDT Appointment [facility] [address] Ear, Nose, and Throat [address] [place] [address] Aretha Amin MD [address] [place], [place] [phone] documented as of this encounter Visit Diagnoses Not on filedocumented in this encounter Care Teams Insole Tack Puller Hand Relationship Specialty Start [place] [address] [place], [place] [phone] PCP - General 10/17/12 documented as of this encounter
--- OUTSIDE RECORDS SUMMARY | 2023-10-23 10:29 | XMS_ITS | Clinical Summary ---
Author Organization [employer] [facility] [employer] [facility] Address [place], [place] [address] Care Team Providers Care Cognos Bi Administrator Name Role Phone Birgit Roland MD Primary Care Provider [phone] Allergies No known active allergies Medications Medication Sig Dispensed Refills Start Date End Date Status lisinopril (PRINIVIL; ZESTRIL) 20 mg tablet Take 1 tablet by mouth once daily. 0 05/04/2012 Active hydrochlorothiazide (HCTZ) 25 mg tablet Take 0.5 tablets by mouth once daily. 0 02/03/2014 Active ciprofloxacin (CIPRO) 500 mg tablet May take for 2-3 days for traveler's diarrhea. May discontinue when symptoms resolved. 15 tablet 0 02/03/2014 Active zolpidem (AMBIEN) 5 mg tabletIndications:C ounseling for travel Take 1 tablet by mouth at bedtime if needed for Sleep. 10 tablet 0 02/03/2014 Active fluticasone (50 mcg per actuation) nasal solution (FLONASE)Indication s:Allergic rhinitis due to other allergic trigger, unspecified seasonality Inhale 1 [place] into affected nostril(s) two times daily. 16 g 3 12/07/2022 Active azelastine 137 mcg/actuation (ASTELIN) nasal sprayIndications:Al lergic rhinitis due to other allergic trigger, unspecified seasonality Inhale 1 [place] into affected nostril(s) two times daily. 30 mL 3 12/07/2022 Active Active Problems No known active problems Immunizations Name Administration Dates Next Due Hepatitis A (Adult) 05/04/2012,01/28/2010 Inactivated Polio Vaccine 01/28/2010 Influenza, IIV3 (Age >=3 years) 02/04/2012 Typhoid (injectable) 01/28/2010 Social History Tobacco Use Types Packs/Day Years Used Date Smoking Tobacco: Former Smokeless Tobacco: Never Alcohol Use Standard Drinks/Week Comments Yes 0 (1 standard drink = 0.6 oz pur e alcohol) 3-5 glass of wine a week Social Connections Answer Date Recorded Frequency of Communication with Friends and Fami ly Not on file 12/26/2022 Sex and Gender Information Value Date Recorded Sex Assigned at Not on file Gender Identity Not on file Sexual Orientation Not on file Obstetrics History Last Filed Vital Signs Vital Sign Reading Time Taken Comments Blood Pressure 144/87 02/03/2014 3:04 PM CDT Pulse 68 02/03/2014 3:01 PM CDT Temperature 36.9 ??C (98.5 ??F) 02/03/2014 3:01 PM CD T Respiratory Rate 16 11/23/2012 6:42 PM CDT Oxygen Saturation 97% 02/03/2014 3:01 PM CDT Inhaled Oxygen Concentration - - Weight 103.9 kg (229 lb) 12/07/2022 2:18 PM CDT Height 180.3 cm (5' 11) 12/07/2022 2:18 PM CDT Body Mass Index 31.94 12/07/2022 2:18 PM CDT Plan of Treatment Health Maintenance Due Date Last Done Comments Tdap 10/04/1962 Depression screening for age 12+ 1963 Hepatitis C screening for ag e 18-79 10/04/1969 Tetanus booster 1971 Colonoscopy through age 75 10/04/1996 Lipids for age 45-75 10/04/1996 Zoster (shingles) series for age 50+ (1 of 2) 10/04/2001 Medicare Wellness for age 65+ 10/04/2016 Pneumococcal series for age 65+ (1 of 1 - PCV) 10/04/2016 COVID-19 vaccine series ( - 2022- season) 2023 02/27/2023, 12/29/2021, 09/03/2021, Additional history exists BMI (ht and wt on same day) for age 18+ 12/08/2023 12/07/2022 Influenza for age 65+ 12/17/2023 02/04/2012 Medical Devices Implanted Type Area Biomedical Analytical Scientist Device Identifier Shelf Expiration Date Model / Serial / Lot Log [id number] - Kathie Retinal - 1 - Strip Silcn [id number] Implanted:Qty: 1 on 11/23/2012 by Fredy Rubio MD at [facility] Right: Eye [employer] 12/16/2018 [id number] / / [id number] Log [id number] - Kathie Retinal - 1 - Sleeve Silcn 1.00i.D.X2.1mm Od [id number] [employer] Implanted:Qty: 1 on 11/23/2012 by Fredy Rubio MD at [facility] Right: Eye [employer] 04/17/2019 [id number]# / / [id number] Advance Directives * Full Code (Latest Code Status on File) Date Activated Date Inactivated Comments 11/23/2012 3:04 PM 11/23/2012 9:25 PM Care Teams Cognos Bi Administrator Relationship Specialty Start Date End Date Birgit Roland MD [address] [place] [address] PCP - General Internal Medicine 09/28/22
--- OUTSIDE RECORDS SUMMARY | 2023-10-23 10:29 | XMS_ITS | Encounter Summary ---
Author Organization [facility] Address [address] [place] [address] Care Team Providers Care Glassware Defect Repairer Name Role Phone Raymundo Denis MD Primary Care Provider [phone] Encounter Details Date Type Department Care Team (Latest Contact Info) Description 06/20/1994 Orders Only Cure, Russell Kincaid MD [address] [place] [address] [place] [id number] Social History Tobacco Use Types Packs/Day Years Used Date Smoking Tobacco: Never Assessed Sex and Gender Information Value Date Recorded Sex Assigned at Not on file Gender Identity Not on file Sexual Orientation Not on file documented as of this encounter Plan of Treatment Upcoming Encounters Date Type Department Care Team (Late st Contact Info) Description 12/22/2023 1:10 PM CDT Appointment [facility] [address] Ear, Nose, and Throat [address] [place] [address] Aretha Amin MD [address] [place], [place] [phone] documented as of this encounter Visit Diagnoses Not on filedocumented in this encounter Care Teams Glassware Defect Repairer Relationship Specialty [place] [address] [place], [place] [phone] PCP - General 10/17/12 documented as of this encounter
--- OUTSIDE RECORDS SUMMARY | 2023-10-23 10:29 | XMS_ITS | Encounter Summary ---
Author Organization On license of [facility] Address [address] [place] [address] Care Team Providers Care Liberal Arts Teacher Name Role Phone Raymundo Denis MD Primary Care Provider [phone] Encounter Details Date Type Department Care Team (Late st Contact Info) Description 08/08/2023 E-Visit [facility] [address] [place] [address] Mychart, [place] [address] Social History Tobacco Use Types Packs/Day Years [...] Description 12/22/2023 1:10 PM CDT Appointment [facility] [place] [address] Ear, Nose, and Throat [address] [place] [phone] Aretha Amin MD [address] [place] [address] documented as of this encounter Visit Diagnoses Not on filedocumented in this encounter Care Teams Liberal Arts Teacher Relationship Specialty Start [place] [address] [place], [place] [phone] PCP - General 10/17/12 documented as of this encounter
--- OUTSIDE RECORDS SUMMARY | 2023-10-23 10:29 | XMS_ITS | Encounter Summary ---
Author Organization [facility] Address [address] [place] [address] Care Team Providers Care Director Voice Name Role Phone Raymundo Denis MD Primary Care Provider [phone] Reason for Referral * Procedure/Equipment (Routine) - Incomplete Specialty Diagnoses / Procedures Referred By Contac t Referred To Contact Diagnoses Lumbar pain Chronic bilateral thoracic back pain (HRC) Procedures MR Lumbar Spine WO IV Cont Vanessa Mehta APRN, PRENATAL TEACHER [address] [place] [address] Referral ID Status Reason Start Date Expiration Date V isits Requested Visits Authorized [id number] Incomplete 08/22/2023 11/20/2024 1 1 * Therapies (Routine) - New Request Specialty Diagnoses / Procedures Referred By Contac t Referred To Contact Diagnoses Lumbar pain Chronic bilateral thoracic back pain (HRC) Vanessa Mehta APRN, PRENATAL TEACHER [address] [place] [id number] [facility] [id number] [place] [id number] Referral ID Status Reason Start Date Expiration Date V isits Requested Visits Authorized [id number] New Request 08/22/2023 08/21/2024 1 1 Scheduling Instructions This order is [...] Comments [facility] * Procedure/Equipment (Routine) - Incomplete Specialty Diagnoses / Procedures Referred By Contac t Referred To Contact Diagnoses Lumbar pain Procedures XR Lumbar Spine W Flexion Extension Vanessa Mehta APRN, CNP [address] [place] [id number] Referral ID Status Reason Start Date Expiration Date V isits Requested Visits Authorized [id number] Incomplete 08/22/2023 11/20/2024 1 1 Reason for Visit * Reason Comments CONSULT Lumbar pain Encounter Details Date Type Department Care Team (Late st Contact Info) Description 08/22/2023 10:40 AM CDT Office Visit [facility] [address] [place] [address] Vanessa Mehta APRN, PRENATAL TEACHER [address] [place] [address] Lumbar pain (Primary Dx); DDD (degenerative disc disease), lumbar (HRC); Lumbar facet arthropathy (HRC); Spondylolisthesis of lumbar region Social History Tobacco Use Types Packs/Day Years Used Date Smoking Tobacco: Never Alcohol Use Standard Drinks/Week Comments Yes 0 (1 standard drink = 0.6 oz pur e alcohol) socially Sex and Gender Information Value Date Recorded Sex Assigned at Not on file Gender Identity Not on file Sexual Orientation Not on file documented as of this encounter Patient Instructions * Patient Instructions* Vanessa Mehta APRN, CNP - 08/22/2023 10:40 AM CDT 1) For pain relief: -Trial of heat and/or ice -Over the counter pain medications -Stretches and core exercising as tolerated 2) Physical therapy for back pain 3) A lumbar MRI has been ordered for your low back pain. Please schedule at your earliest convenience. Contact the clinic after your imaging is completed to schedule a follow up with Vanessa Metha CNP to review your results. Appointment Scheduling: Can be done by calling our main number [phone] Vanessa Mehta CNP Orthopedic Spine [facility] documented in this encounter Progress Notes * Vanessa Mehta APRN, CNP - 08/22/2023 10:40 AM CDT Images from the original note were not included. [facility]: HPI: Lamin Arredondo is a 72 y.o. male who presents today for initial consult for low back pian. He notes his pain started about 5 months ago without any cause or injury. He rates his pain 6/10 today. He describes his pain across the bilateral lower back. He denies pain radiating along the BLE or N/T. He denies BLE weakness, foot drop/drag or falls. He denies changes to bowel or bladder. He has increased pain especially with trying to sleep at night. He also notes his pain bothers him with standing for prolonged periods of time. He notes he walks regularly, up to 3 miles daily, however, lately because of pain he cannot do more than 1 mile. He takes Tylenol and ibuprofen sometimes. He likes to golf and has had some issues with pain. He has not had lumbar injections or PT. Patient Active Problem List Diagnosis High blood pressure (HRC) Back pain Past Medical History: Diagnosis Date HTN (hypertension) Sleep apnea Review Of Systems Musculoskeletal: back pain Neurologic: negative ROS: 10 point ROS neg other than the symptoms noted above in the HPI. PHYSICAL EXAM: HEENT: Normocephalic, atraumatic. PERRLA. EOM's intact. Neck: Supple, non-tender, without lymphadenopathy. Heart: No peripheral edema Lungs: No SOB Skin: Warm and dry, good capillary refill. Extremities: no edema, cyanosis NEUROLOGICAL EXAMINATION: Mental status: Awake and alert; answers questions appropriately, speech is fluent. Cranial nerves: II-XII grossly intact. Motor: Shoulder Abduction: Right: 08/19 Left: 08/19 Biceps: Right: 08/19 Left: 08/19 Triceps: Right: 08/19 Left: 08/19 Wrist Extensors: Right: 08/19 Left: 08/19 Wrist Flexors: Right: 08/19 Left: 08/19 interosseus : Right: 08/19 Left: 08/19 Hip Flexor: Right: 08/19 Left: 08/19 Hip Adductor: Right: 08/19 Left: 08/19 Hip Abductor: Right: 08/19 Left: 08/19 Gastroc Soleus: Right: 08/19 Left: 08/19 Tib/Ant: Right: 08/19 Left: 08/19 EHL: Right: 08/19 Left: 08/19 DF: Right: 08/19 Left: 08/19 PF: Right: 08/19 Left: 08/19 Reflexes: BLE DTR: Patellar: 1+ symmetric Achilles: 1+ symmetric Sensation intact to light touch to BLE Gait: Stable, no difficulty with heel or toe walking. Cervical examination reveals good range of motion. No tenderness to palpation of the cervical spineor paraspinous muscles bilaterally. Lumbar examination reveals tenderness of the spine midline and bilateral paraspinous muscles. Some discomfort with ROM. Negative SI joint, sciatic notch or greater trochanteric tenderness to palpation bilaterally. Straight leg raise is negative bilaterally. Imaging: XR Lumbar Spine W Flexion Extension Order: [id number] Status: Final result Visible to patient: Yes (seen) Next appt: 08/30/2023 at 08:50 AM in Orthopedics (Vanessa Mehta, NURSE'S COMPANION, PRENATAL TEACHER) Dx: Lumbar pain Details Reading Physician Reading Date Result Priority Tony Francois MD [phone] 08/22/2023 Routine Narrative & Impression IMPRESSION COMPARISON: [...] Last Resulted: 08/22/23 12:40 Assessment: I reviewed lumbar XR today with multilevel degenerative disc, facet arthropathy and retrolisthesis with L1 on L2 and L2 on L3. I recommend getting an MRI of the lumbar spine to r/o canal and/or foraminal stenosis contributing to his pain. He is open to starting PT and will f/u after his MRI. Plan: 1) For pain relief: -Trial of heat and/or ice -Over the counter pain medications -Stretches and core exercising as tolerated 2) Physical therapy for back pain 3) A lumbar MRI has been ordered for your low back pain. Please schedule at your earliest convenience. Contact the clinic after your imaging is completed to schedule a follow up with Vanessa Mehta CNP to review your results. Appointment Scheduling: Can be done by calling our main number [phone] Vanessa Mehta CNP Orthopedic Sp[facility] documented in this encounter Plan of Treatment Upcoming Encounters Date Type Department Care Team (Late st Contact Info) Description 12/22/2023 1:10 PM CDT Appointment [facility] [place] [address] Ear, Nose, and Throat [address] [place] [address] Aretha Amin MD [address] [place], [place] [phone] Scheduled Referrals Name Type Priority Associated Diagnoses Orde r Schedule Physical Therapy Referral Routine Lumbar pain Ordered: 08/22/2023 documented as of this encounter Results * MR Lumbar Spine [...] space narrowing mild degenerative endplate signal changes [id number]. Lower thoracic spinal cord unremarkable. Mild grade [...] from Charity W, Nabil PH, Filiberto B, etal. AJNR AM J Neuroradiol 2015:36:811-16. Vanessa Mehta APRN, PRENATAL TEACHER RAD MRI * XR Lumbar Spine W [...] in the lumbar spine. Vanessa Mehta APRN, PRENATAL TEACHER RAD GD documented in this encounter Visit Diagnoses Diagnosis Lumbar pain- Primary Lumbago DDD (degenerative disc disease), lumbar (HRC) Degeneration of lumbar or lumbosacral intervertebral disc Lumbar facet arthropathy (HRC) Lumbosacral spondylosis without myelopathy Spondylolisthesis of lumbar region Acquired spondylolisthesis Lumbar pain Lumbago Lumbar pain Lumbago Chronic bilateral thoracic back pain (HRC) documented in this encounter Care Teams Director Voice Relationship Specialty [place] [address] [place], [place] [phone] PCP - General 10/17/12 documented as of this encounter
--- OUTSIDE RECORDS SUMMARY | 2023-10-23 10:29 | XMS_ITS | Encounter Summary ---
Author Organization [facility] Address [address] [place] [address] Care Team Providers Care Product Scientist Name Role Phone Raymundo Denis MD Primary Care Provider Encounter Details Date Type Department Care Team (Latest Contact Info) Description 11/14/1994 Orders Only Valeri Kaur MD Social History Tobacco Use Types Packs/Day Years Used Date Smoking Tobacco: Never Assessed Sex and Gender Information Value Date Recorded Sex Assigned at Not on file Gender Identity Not on file Sexual Orientation Not on file documented as of this encounter Plan of Treatment Upcoming Encounters Date Type Department Care Team (Late st Contact Info) Description 12/22/2023 1:10 PM CDT Appointment [facility] [address] Ear, Nose, and Throat [address] [place] [address] Aretha Amin MD [address] [place] [address] documented as of this encounter Visit Diagnoses Not on filedocumented in this encounter Care Teams Product Scientist Relationship Specialty Start [place] [address] [place] [address] PCP - General 10/17/12 documented as of this encounter
--- OUTSIDE RECORDS SUMMARY | 2023-10-23 10:29 | XMS_ITS | Encounter Summary ---
Author Organization [facility] Address [address] [place] [address] Care Team Providers Care Buffer Automatic Name Role Phone Raymundo Denis MD Primary Care Provider [phone] Encounter Details Date Type Department Care Team (Latest Contact Info) Description 03/16/1998 Orders Only Walter Pagan MD [address], [place] [address] Social History Tobacco Use Types Packs/Day Years Used Date Smoking Tobacco: Never Assessed Sex and Gender Information Value Date Recorded Sex Assigned at Not on file Gender Identity Not on file Sexual Orientation Not on file documented as of this encounter Plan of Treatment Upcoming Encounters Date Type Department Care Team (Late st Contact Info) Description 12/22/2023 1:10 PM CDT Appointment [facility] [address] Ear, Nose, and Throat [address] [place] [phone] Aretha Amin MD [address] [place], [place] [address] documented as of this encounter Visit Diagnoses Not on filedocumented in this encounter Care Teams Buffer Automatic Relationship Specialty Start [place] [address] [place], [place] [phone] PCP - General 10/17/12 documented as of this encounter
--- OUTSIDE RECORDS SUMMARY | 2023-10-23 10:29 | XMS_ITS | Encounter Summary ---
Author Organization [facility] Address [address] [place] [address] Care Team Providers Care Alum Operator Name Role Phone Raymundo Denis MD Primary Care Provider [phone] Encounter Details Date Type Department Care Team (Latest Contact Info) Description 08/05/1994 Orders Only Valeri Kaur MD Social History [...] Info) Description 12/22/2023 1:10 PM CDT Appointment [facility] [address] Ear, Nose, and Throat [address] [place] [address] Aretha Amin MD [address] [place] [address] documented as of this encounter Visit Diagnoses Not on filedocumented in this encounter Care Teams Alum Operator Relationship Specialty Start [place] [address] [place] [address] PCP - General 10/17/12 documented as of this encounter
== END 2023-10-23 10:26 | disposition home or self-care (01) ==
PROVIDERS: PCP Internal Medicine; Visit Provider Internal Medicine
DX: I10 Essential (primary) hypertension (principal); E78.5 Hyperlipidemia, unspecified
CPT/HCPCS: 80048; 80061

== ENCOUNTER 2024-09-03 10:30 | Outpatient (CLI) | payer MEDICARE, OTHER, SELFPAY | END 2024-09-03 10:31 | disposition home or self-care (01) | PROVIDERS: PCP Internal Medicine; Visit Provider Internal Medicine | DX: I10 Essential (primary) hypertension (principal); R53.83 Other fatigue; I77.810 Thoracic aortic ectasia | CPT/HCPCS: 80053; 82550; 83735; 84443; 86140 ==

== ENCOUNTER 2024-09-16 09:43 | Outpatient (CLI) | payer MEDICARE, OTHER, SELFPAY | END 2024-09-16 09:44 | disposition home or self-care (01) | LOC: RAD 09:45 | PROVIDERS: PCP Internal Medicine; Visit Provider Internal Medicine | DX: I77.810 Thoracic aortic ectasia (principal); I51.7 Cardiomegaly; I35.1 Nonrheumatic aortic (valve) insufficiency; I34.0 Nonrheumatic mitral (valve) insufficiency | CPT/HCPCS: 93306 ==

== ENCOUNTER 2024-09-24 09:19 | Outpatient (CLI) | payer MEDICARE, OTHER, SELFPAY | END 2024-09-24 09:20 | disposition home or self-care (01) | LOC: NFLDREF 09:20 | PROVIDERS: PCP Internal Medicine; Visit Provider Internal Medicine | DX: Z01.818 Encounter for other preprocedural examination (principal) | CPT/HCPCS: 80048 ==

== ENCOUNTER 2025-02-11 09:14 | Outpatient (CLI) | payer MEDICARE, OTHER, SELFPAY | END 2025-02-11 09:15 | disposition home or self-care (01) | LOC: NFLDREF 02-12 19:59 | PROVIDERS: PCP Internal Medicine; Referring Provider Internal Medicine; Visit Provider Internal Medicine | DX: I10 Essential (primary) hypertension (principal); E78.5 Hyperlipidemia, unspecified; Z79.899 Other long term (current) drug therapy; R53.83 Other fatigue | CPT/HCPCS: 80048; 80061; 82607 ==